=== PATIENT | female | born 1935 | race Caucasian/White ===

== ENCOUNTER 2017-10-15 00:47 | Inpatient (IN) | payer MEDICARE, OTHER ==
[2017-10-14 15:05] LABS: INR 0.98
[2017-10-15] VITALS (11 sets, daily range): BP systolic 91–175; BP diastolic 52–117
[~2017-10-15] VITALS: Ht 162.6 cm; Wt 59.9 kg
[~2017-10-15 00:47] MED LIST: BISA-236 RC; DOCU240C84 PO; GABA-551 PO; HYDR-385 PO; LATA2.5D7 OP; LISI5TAB25 PO; NITR-1 PO; OMEP-137 PO; OMEP40CA48 PO; OXYC-865 PO; PRAM0.754 PO; PRAM1TAB22 PO; WARF3TAB14 PO; WARF6TAB13 PO; [UNRECOGNIZED DRUG - CODE] PO; [UNRECOGNIZED DRUG - CODE] PO
[2017-10-15] MEDS ORDERED: ceFAZolin(*) 2GM/D5W 50ML 50 ML IVPB ONE (07:15)
[2017-10-15] MEDS ORDERED: LIDOCAINE/SOD BICARB 8.4% SYR ID ONE (07:15)
[2017-10-15] MEDS ORDERED: ACETAMINOPHEN 500 MG TAB PO ONE (07:15)
[2017-10-15] MEDS ORDERED: PREGABALIN 50 MG CAP PO ONE (07:15)
[2017-10-15] MEDS ORDERED: MIDAZOLAM 2 MG/2 ML VIAL IVP PRN (07:15)
[2017-10-15] MEDS ORDERED: NORMOSOL R SOLN(*) 1000 ML BAG 1,000 ML IV PRN (07:15)
[2017-10-15] MEDS ORDERED: TRANEXAMIC AC 1000 MG/10ML SDV 1,000 MG in DEXTROSE 5% 50 ML BAG 50 ML IV ONE (07:15)
[2017-10-15] MEDS ORDERED: PREGABALIN PO ONE (07:15)
[2017-10-15] MEDS ORDERED: BACITRACIN 50000 UNIT/VIAL 100,000 UNIT in NS 0.9% 3000 ML IRRIGATION BAG 3,000 ML IR ONE (07:15)
[2017-10-15] MEDS ORDERED: cloNIDine EPIDUR INJ 100MCG/ML 40 MCG, ROPIVACAINE 0.5% 20 ML VIAL 25 ML, EPINEPHrine H... INJ ONE (07:15)
[2017-10-15] MEDS ORDERED: CELECOXIB 200 MG CAP PO ONE (07:15)
[2017-10-15] MEDS ORDERED: PREGABALIN 75 MG CAPSULE PO ONE (07:16)
[2017-10-15] MEDS ORDERED: DEXAMETHASONE SOD 4 MG/ML VIAL ONE (07:24)
[2017-10-15] MEDS ORDERED: fentaNYL CITR 100 MCG/2 ML AMP ONE (07:24)
[2017-10-15] MEDS ORDERED: LIDOCAINE MPF 1% 5 ML VIAL ONE (07:24)
[2017-10-15] MEDS ORDERED: PROPOFOL EMUL(*) 10MG/ML 20 ML 20 ML ONE (07:24)
[2017-10-15] MEDS ORDERED: ONDANSETRON 4 MG/2 ML VIAL ONE ×2 (07:24→10:29)
[2017-10-15] MEDS ORDERED: ACET500T68 PO (07:40)
[2017-10-15] MEDS ORDERED: APREPITANT 40 MG CAP PO ONE (08:20)
[2017-10-15] MEDS ORDERED: KETAMINE HCL 200 MG/20 ML MDV ONE (08:45)
[2017-10-15] MEDS ORDERED: MIDAZOLAM 2 MG/2 ML VIAL ONE (09:06)
[2017-10-15] MEDS ORDERED: LR 1000 ML BAG 1000 ML IV PRN (11:35)
[2017-10-15] MEDS ORDERED: diphenhydrAMINE 50 MG/ML VIAL IVP PRN (11:35)
[2017-10-15] MEDS ORDERED: MAGNESIUM CITRATE 300 ML BTL PO PRN (11:35)
[2017-10-15] MEDS ORDERED: PROMETHAZINE 25 MG/ML 1 ML AMP IVP PRN (11:35)
[2017-10-15] MEDS ORDERED: ONDANSETRON 4 MG/2 ML VIAL IVP PRN (11:35)
[2017-10-15] MEDS ORDERED: BISACODYL 10 MG SUPP PR PRN (11:35)
[2017-10-15] MEDS ORDERED: MAGNESIUM HYDROXIDE* 30ML UDCP PO PRN (11:35)
[2017-10-15] MEDS ORDERED: ZOLPIDEM TARTRATE 5 MG TAB PO PRN (11:35)
[2017-10-15] MEDS ORDERED: diphenhydrAMINE 25 MG CAP PO PRN (11:35)
[2017-10-15] MEDS ORDERED: FLUSH 10 ML SYR IVP PRN (11:35)
[2017-10-15] MEDS ORDERED: HYDROmorphone HCL 2 MG/ML SDV IVP PRN (11:35)
--- NOTE | 2017-10-15 12:13 | RADIOLOGY IMAGING REPORT ---
[place] [facility] [place] NAME: Litzy Singh : 1935 MR: [id number] V: [id number] EXAM DATE: ORDERING PHYSICIAN: ELY LOPEZ TECHNOLOGIST: Location: [facility] [place] Patient: Litzy Singh : 1935 Visit/Account:[id number] Date of Sevice: 10/15/2017 Exam type: PELVIS History: POST RIGHT HIP ARTHROPLASTY Comparison: None. Findings: There is a right hip arthroplasty that appears in good anatomic alignment on the AP view. IMPRESSION: 1. As above Report Dictated By: Stephanie Mcnair MD at 10/15/2017 12:09 PM Report E-Signed By: Stephanie Mcnair MD at 10/15/2017 12:09 PM WSN:[email or web address]
[2017-10-15] MEDS ORDERED: BACITRACIN/POLYMY B OINT 3.5GM OP PRN (12:40)
--- NOTE | 2017-10-15 12:59 | RADIOLOGY IMAGING REPORT ---
FACILITY: [facility] PATIENT NAME: Litzy Singh : 1935 MR: [id number] V: [id number] EXAM DATE: ORDERING PHYSICIAN: ELY LOPEZ TECHNOLOGIST: Location: [facility] Patient: Litzy Singh : 1935 Visit/Account:[id number] Date of Sevice: 10/15/2017 Exam type: HIP IN OR RIGHT History: RIGHT TOTAL HIP ARTHROPLASTY Comparison: None. Findings: Is a trial right hip arthroplasty that appears in good anatomic alignment on this single AP view. Re tractors project over the operative field IMPRESSION: 1. As above Report Dictated By: Stephanie Mcnair MD at 10/15/2017 12:54 PM Report E-Signed By: Stephanie Mcnair MD at 10/15/2017 12:54 PM WSN:[email or web address]
[2017-10-15] MEDS ORDERED: PROPARACAINE 0.5% OP 15ML BTL OU ONE (13:50)
[2017-10-15] MEDS ORDERED: FLUORESCEIN SOD 1 MG 1 EA STRP OU ONE (13:50)
[2017-10-15] MEDS ORDERED: FLUORESCEIN SOD 1 MG 1 EA STRP ONE (13:54)
[2017-10-15] MEDS ORDERED: PROPARACAINE 0.5% OP 15ML BTL ONE (13:55)
[2017-10-15] MEDS ORDERED: ARTIFICIAL TEARS OINT 3.5 GM OU PRN (14:05)
--- NOTE | 2017-10-15 14:33 | Hospitalist Consultation ---
History of Present Illness Requesting Physician Dr. Reynolds Reason for Consult Medication Management Chief Complaint s/p right total hip replacement History of Present Illness She was admitted s/p right total hip replacement. She has complaints of right eye discharge and pain, which started after surgery. She states she was given Tobramycin in the PACU with no relief of symptoms. Other than her eye complaints , she has no concerns. History Problems: (1) OBSTRUCTIVE SLEEP APNEA (ADULT) (PEDIATRIC) Status: Chronic (2) Chronic UTI Status: Chronic (3) Glaucoma Status: Chronic (4) Third degree AV block Status: Chronic (5) Hypertension Status: Chronic (6) UNSPECIFIED ATRIAL FIBRILLATION Status: Chronic Home Meds Reported Medications Acetaminophen (TYLENOL EXTRA STRENGTH) 500 Mg Tablet, 500 MG PO PRN, TAB 10/15/17 Pramipexole Di-HCl (Pramipexole ER) 0.75 Mg Tab.er.24h, 2 TAB PO HS 10/08/17 Omeprazole (OMEPRAZOLE) 40 Mg Capsule.dr, 40 MG PO QDAY, CAP 10/08/17 Warfarin Sodium (WARFARIN SODIUM) 6 Mg Tablet, 6 MG PO QDAY Saturday, Saturday, Saturday, Saturday02/13/17 Warfarin Sodium (WARFARIN SODIUM) 3 Mg Tablet, 3 MG PO QDAY, TAB Saturday, , Saturday02/13/17 Latanoprost (LATANOPROST) 2.5 Ml Drops, 1 DROP OP HS 02/06/17 Lisinopril (LISINOPRIL) 5 Mg Tablet, 5 MG PO QDAY 12/24/12 Gabapentin (GABAPENTIN) 400 Mg Capsule, 400 MG PO TID 12/24/12 Discontinued Reported Medications Docusate Calcium (SURFAK) 240 Mg Capsule, 240 MG PO DAILY for 15 Days, CAPSULE 02/14/17 Hydrocodone Bit/Acetaminophen (HYDROCODON-ACETAMINOPHEN 5-325) 1 Each Tablet, 1- 2 EACH PO Q6H Y for PAIN, #49 TAB 02/14/17 Pramipexole Di-Hcl (MIRAPEX ER) 4.5 Mg Tab.er.24h, 13.5 MG PO QDAY 02/06/17 Omeprazole (OMEPRAZOLE) 20 Mg Tablet.dr, 40 MG PO QDAY, TAB 02/06/17 Nitrofurantoin Macrocrystal (NITROFURANTOIN) 100 Mg Capsule, 100 MG PO QDAY, CAPSULE 02/06/17 Allergies: Coded Allergies: No Known Drug Allergies (Unverified , 10/08/17) Hx Smoking: No Smoking Status: Never Smoker Caffeine Intake: Coffee Caffeine/Cups Per Day: 2-3 Hx Alcohol Use: No Hx Substance Use Disorder: No Social Drug Use: Never History of IV Drug Use: No Review of Systems All Systems Reviewed/Normal: Yes, Except as Noted Eyes: Photophobia, Other (right eye pain, discharge) Exam Vital Signs Vital Signs Date Time Temp Pulse Resp B/P (MAP) Pulse Ox O2 Delivery O2 Flow Rate FiO2 10/15/17 13:01 97.3 71 16 95 Nasal Cannula 4.0 General Appearance: Alert, Awake, No Acute Distress, Afebrile Neuro: No Gross deficits Eyes: Other (Fluorescine strip exam reveals corneal abrasion laterally to the right eye ) Cardiovascular: Regular Rate and Rhythm Respiratory: No Respiratory Distress, Clear to Auscultation GI: Abd Soft and Non-Tender Psych: Alert & Oriented X3, Appropriate Mood & Affect Assessment and Plan Problems: (1) Status post total hip replacement, right Status: Acute Assessment & Plan: Followed by Dr. Reynolds. (2) Corneal abrasion Status: Acute Assessment & Plan: She presented with right eye pain and tearing. Eye exam showed corneal abrasion. She will continue Tobramycin eye drops four times daily for three to five days. We will give her Lacri-Lube for comfort of her eye. (3) UNSPECIFIED ATRIAL FIBRILLATION Status: Chronic Assessment & Plan: She is on chronic treatment with Coumadin. She stopped her Coumadin five days prior to surgery, she will be restarted on Coumadin tomorrow. (4) Hypertension Status: Chronic Assessment & Plan: She is on chronic treatment with Lisinopril. (5) Third degree AV block Status: Chronic Assessment & Plan: She has a pacemaker. (6) Glaucoma Status: Chronic Assessment & Plan: She is on chronic treatment with Latanoprost at night. (7) OBSTRUCTIVE SLEEP APNEA (ADULT) (PEDIATRIC) Status: Chronic Assessment & Plan: She uses CPAP at night. She has brought her own machine to use during admission. Venous Thromboembolism Antithrombotics Is Pt On Any Antithrombotics?: No Problem Qualifiers (1) Corneal abrasion: Encounter type: initial encounter Laterality: right Qualified Codes: S05.01XA - Injury of conjunctiva and corneal abrasion without foreign body, right eye, initial encounter AIDEE OROPEZA October 15, 2017 14:33
[2017-10-15] MEDS: GABAPENTIN(*) 300 MG CAP 300 MG, GABAPENTIN(*) 100 MG CAP 100 MG PO SCH ×2 (15:09→20:32)
[2017-10-15] MEDS: BACITRACIN/POLYMY B OINT 3.5GM OP SCH ×2 (16:44→20:36)
[2017-10-15] MEDS: ceFAZolin(*) 1 GM VIAL 1 GM in NS(*) 0.9% 100 ML ADDVANT BAG 100 ML IVPB SCH (16:45)
--- NOTE | 2017-10-15 20:39 | OPERATIVE REPORT 1 ---
EVENT DATE: October 15, 2017 SURGEON: Gregor Reynolds MD ANESTHESIOLOGIST: Brigido Arndt MD ANESTHESIA: General LMA anesthesia with a spinal. CAD DESIGN ENGINEER: TRAE Colin PREOPERATIVE DIAGNOSIS Right hip osteoarthritis. POSTOPERATIVE DIAGNOSIS Right hip osteoarthritis. PROCEDURE PERFORMED Right total hip arthroplasty. FINDINGS The patient had a significant amount of arthritic changes associated with the hip that was amenable for a total hip replacement. ESTIMATED BLOOD LOSS About 200 mL. DRAINS None. COMPLICATIONS None. TOURNIQUET TIME Not applicable. IMPLANTS USED Fer 54 trabecular metal cup with a neutral liner, a 9 standard stem, and 36, +0 ceramic head. Also, we put in a dome hole plug and three screw hole plugs. SPECIMENS None. INDICATIONS AND HISTORY This patient is an 82-year-old female who presented to my clinic for evaluation of right hip pain and irritation going on for some time. She continued to have pain and irritation despite conservative management and so was referred to me for further evaluation and probable total hip arthroplasty. We went over the risks and benefits associated with this, and informed consent was obtained at the last clinic visit. We talked about the implications of the leg length discrepancy as well as dislocation risks and other risks associated with a major surgery and also implications of a total hip arthroplasty. DESCRIPTION OF PROCEDURE As the patient was brought in the operating room, she and the procedure were both verified. She was placed supine on the operating table and induced and intubated by Anesthesia. After she was given a spinal, she was then turned in the lateral decubitus position with the right hip towards the ceiling, and then the right hip was prepped and draped in the usual fashion. A timeout was observed verifying the correct patient and procedure. The standard incision was made over the posterior aspect of the hip, and the standard posterior approach was taken through the skin and subcutaneous tissue until I was able to get down to the IT band and the gluteal musculature. Once I was able to do this, I then made a small incision in the gluteal musculature and split this manually, by then also cutting into the IT band. Once I did this , I was then able to identify the bursal sac in this area. I removed some of the bursal sac and identified the short external rotators. Once I identified the short external rotators, I found the patient to have a nice piriformis which was then cut and tagged for later repair. After cutting the rest of the short external rotators, I then made a T incision within the capsule and then tagged the capsule for later repair also. This was then followed by dislocation of the hip and then cutting the femoral neck without any major difficulty in accordance with the Fer system. I then was able to put retractors around the acetabulum and gain access to the acetabulum. I cut off the labrum without any major difficulty. I then was able to identify the true pelvic floor. I then subsequently reamed from a 43 up to a 51 mm reamer and subsequently giving it a little bit more anteversion and also getting down to good cortical bone. I then placed a 53 mm reamer in, and this had good cortical fit, and so therefore, I then was able to place a 54 mm cup without any difficulty and then put in the dome hole and screw hole plugs once I got that down and in good position. I then put in the liner and then turned attention back to the femur. Once on the femur again, I was able to flex and internally rotate until I could get a good access to the femur. I then put the box cutting osteotome down the central portion. This was then followed by the canal finder and the lateralizing reamer. I then subsequently broached all the way up to a 9 broach , and this was found to have good stability associated with it and good fill of the proximal femur. This did not need to be cemented, and so therefore, we left it in place. I then was able to trial the standard head and neck. These looked very good on x-rays, and there were no signs of leg length discrepancy. We removed all these , irrigated with copious amounts of saline, and then put in the final components with the 9 stem and the 36, +0 head. I then reduced the hip, put it through a range of motion, saw no signs of instability, closed the capsule with a heavy Ethibond. This was then followed by drill holes through the posterior aspect of the femur to reattach the piriformis. I then irrigated again and then put in the pain cocktail, and then I closed the gluteal musculature with a #2 Stratafix, then followed by 2-0 Vicryl in the subcutaneous fat, and a subcutaneous 2-0 Stratafix, followed by a subcuticular 4-0 Monocryl. Then, the wound was dressed with Steri-Strips, gauze 4 x 4's, and a soft wrap. The patient was awakened, extubated, and transferred to PACU in stable condition. TISH
[2017-10-15] MEDS ORDERED: PATIENT'S OWN MED PO SCH (21:00)
[2017-10-15] MEDS ORDERED: LATANOPRO 0.005% OP SOLN 2.5ML OU SCH (21:00)
[2017-10-15] MEDS ORDERED: NON-FORMULARY MEDICATION MISCELL (Gabapentin 400 MG) PO SCH (21:00)
[2017-10-16] MEDS ORDERED: NS(*) 0.9% 500 ML BAG 0 ML ONE (00:38)
[2017-10-16 00:45] VITALS: BP 111/67
[2017-10-16] MEDS: ceFAZolin(*) 1 GM VIAL 1 GM in NS(*) 0.9% 100 ML ADDVANT BAG 100 ML IVPB SCH ×2 (00:51→08:39)
[2017-10-16 02:21] VITALS: BP 102/81
[2017-10-16 05:47] VITALS: BP 101/69
[2017-10-16 06:04] LABS: INR 1.04
[2017-10-16] MEDS ORDERED: PER PO (07:22)
[2017-10-16] MEDS: GABAPENTIN(*) 300 MG CAP 300 MG, GABAPENTIN(*) 100 MG CAP 100 MG PO SCH (08:39)
[2017-10-16] MEDS ORDERED: LISINOPRIL 5 MG TAB PO SCH (09:00)
[2017-10-16] MEDS ORDERED: PANTOPRAZOLE SOD 40 MG TABEC PO SCH (09:00)
[2017-10-16] MEDS ORDERED: POLYMYXIN B SULFATE OP (09:17)
[2017-10-16] MEDS ORDERED: BACITRACIN OP (09:17)
[2017-10-16] MEDS ORDERED: LAC3.5 OU (09:17)
--- NOTE | 2017-10-16 09:23 | Hospitalist Progress Note ---
Subjective Progress Notes Subjective She has no complaints this morning. She reports her eye pain is much better today. She states she would like to go home today. Patient Complains of: Cardiovascular: No: Chest Pain Respiratory: No: Shortness of Breath Physical Exam Vital Signs Date Time Temp Pulse Resp B/P (MAP) Pulse Ox O2 Delivery O2 Flow Rate FiO2 10/16/17 08:15 84 10/16/17 05:47 97.9 72 30 101/69 (80) Nasal Cannula 4.0 General Appearance: Alert, Awake, No Acute Distress, Afebrile Neuro: No Gross deficits Eyes: PERRLA, Other (no redness, swelling, or discharge noted from the right eye) Cardiovascular: Regular Rate and Rhythm Respiratory: No Respiratory Distress, Clear to Auscultation GI: Soft and Non-Tender Psych: Alert & Oriented X3, Appropriate Mood & Affect Result Diagram: 10/16/17 0544 Assessment and Plan Problems: (1) Status post total hip replacement, right Status: Acute Assessment & Plan: Followed by Dr. Reynolds. (2) Corneal abrasion Status: Acute Assessment & Plan: She presented with right eye pain and tearing. Eye exam showed corneal abrasion. She will continue Tobramycin eye drops four times daily for three days. We will give her Lacri-Lube for comfort of her eye. (3) UNSPECIFIED ATRIAL FIBRILLATION Status: Chronic Assessment & Plan: She is on chronic treatment with Coumadin. She stopped her Coumadin five days prior to surgery, she will be restarted on Coumadin today. (4) Hypertension Status: Chronic Assessment & Plan: She is on chronic treatment with Lisinopril. (5) Third degree AV block Status: Chronic Assessment & Plan: She has a pacemaker. (6) Glaucoma Status: Chronic Assessment & Plan: She is on chronic treatment with Latanoprost at night. (7) OBSTRUCTIVE SLEEP APNEA (ADULT) (PEDIATRIC) Status: Chronic Assessment & Plan: She uses CPAP at night. She has brought her own machine to use during admission. Exam Sepsis Risk: No Definite Risk Problem Qualifiers (1) Corneal abrasion: Encounter type: initial encounter Laterality: right Qualified Codes: S05.01XA - Injury of conjunctiva and corneal abrasion without foreign body, right eye, initial encounter AIDEE OROPEZA October 16, 2017 09:23
[2017-10-16] MEDS: BACITRACIN/POLYMY B OINT 3.5GM OP SCH (09:34)
[2017-10-16] MEDS ORDERED: WARFARIN SOD 6 MG TAB PO SCH (13:00)
[2017-10-17] MEDS ORDERED: WARFARIN SOD 3 MG TAB PO SCH (13:00)
== END 2017-10-16 11:45 | disposition home or self-care (01) | DRG 470 ==
LOC: OR 00:47 → MED 12:55
PROVIDERS: ADMIT Orthopaedic Surgery; ATTEND Orthopaedic Surgery
PROC: 5A09357 Assistance with Respiratory Ventilation, Less than 24 Consecutive Hours, Continuous Positive Airway Pressure (ICD-10-PCS; 2017-10-15)
PROC: 0SR904Z Replacement of Right Hip Joint with Ceramic on Polyethylene Synthetic Substitute, Open Approach (ICD-10-PCS; principal; 2017-10-15 09:30)
DX: M16.11 Unilateral primary osteoarthritis, right hip (principal); I44.2 Atrioventricular block, complete; G47.33 Obstructive sleep apnea (adult) (pediatric); I10 Essential (primary) hypertension; S05.01XA Injury of conjunctiva and corneal abrasion without foreign body, right eye, initial encounter; K21.9 Gastro-esophageal reflux disease without esophagitis; I48.2 Chronic atrial fibrillation; H40.9 Unspecified glaucoma; Z79.01 Long term (current) use of anticoagulants; Z95.0 Presence of cardiac pacemaker; Z90.710 Acquired absence of both cervix and uterus
CPT/HCPCS: 36415; 72170; 85014; 85018; 85610; 86850; 86900; 86901; 94660; 97161; 97165; C1713; C1776; J0171; J0690; J0735; J1100; J1885; J2001; J2250; J2405; J2550; J2704; J2795; J3010; J3490; J7050; J7060; J8501